=== PATIENT | female | born 1990 | race Hispanic/Latino ===

== ENCOUNTER 2024-08-24 11:49 | Emergency (ER) | payer SELFPAY ==
--- NOTE | 2024-08-24 12:17 | ED.GENMED ---
ED Provider Triage
<Andi Victor PA-C - Last Filed: 08/24/24 12:23>
-
Patient seen by provider in Triage?: Seen in Triage
Attestation: A medical screening examination has been initiated by a qualified medical provider. Based on the assessment performed at this time, it has been determined that an emergent medical condition may exist and the patient has been informed
that further medical evaluation and possible additional diagnostic testing may be needed.
HPI: 34-year-old female presents the emergency department for evaluation of right lower quadrant abdominal pain that began this morning. She was seen in [facility] 1 week ago for vaginal discharge where she was found to be with an
hCG of 31,000, and ultrasound was performed showing a live intrauterine . She went to urgent care today due to this pain and was referred to the ED, denies any vaginal discharge or bleeding at this time
GENERAL: Alert , in no apparent distress
EYE: No visual abnormalities.
NECK: Trachea midline
ENT: No visible abnormalities.
LUNGS: No acute respiratory distress
NEUROLOGICAL: Alert and oriented
SKIN: Skin intact. No visible changes.
MUSCULOSKELETAL: Moving extremities normally
PSYCH: Normal and appropriate interaction.
This is a medical evaluation conducted in person to initiate diagnostic evaluation and provide initial therapeutics. Please see further documentation by the treating clinician.
History of Present Illness
<Andi Victor PA-C - Last Filed: 08/24/24 12:23>
General
Chief Complaint: Problems
Time Seen by Provider: 08/24/24 12:58
<Linh Dove NP - Last Filed: 08/24/24 18:24>
General
Source: patient, spouse and other (Language sanding line operator [id number])
Exam Limitations: none
Nursing documentation reviewed up to this point in time: agreed with
History of Present Illness
History of Present Illness:
34-year-old female 4 para 3. Since for right lower quadrant abdominal pain that started last night. She states it 5/10 now, it comes and goes. She denies vaginal discharge or bleeding. Patient was seen at [facility] 08/17 for vaginal
infection and given amoxicillin which she continues to take. She has complete copy of her ER visit including lab work. Her CBC and CMP were unremarkable her hepatic functions were normal. Her urine showed no sign of infection. She had a
vaginitis panel which included trichomonas, bacterial vaginosis and candidal vaginosis. She had an ultrasound which showed a live intrauterine gestation at 6 weeks 2 days with an estimated delivery date of 04/10/2025. No ectopic
Patient denies N/V/C/D. Denies fever or chills.
Past History
<Linh Dove, DISABILITY ADVOCATE - Last Filed: 08/24/24 18:24>
Past History
ED Past Medical History: None
Social History
Tobacco: Non-smoker
Alcohol: None
Personal: Partner
Living: with family
Review of Systems
<Linh Dove, DISABILITY ADVOCATE - Last Filed: 08/24/24 18:24>
Review of Systems
Allergies reviewed?: Yes
All Other Systems: ROS reviewed and negative except as documented in HPI and ROS
Constitutional: Denies fever
Respiratory: Denies trouble breathing
Cardiac: Denies chest pain
ABD/GI: Reports abdominal pain; Denies nausea, vomiting or diarrhea
: Denies dysuria, frequency, difficulty voiding, bleeding or discharge
Musculoskeletal: Reports no symptoms
Skin: Reports no symptoms
Neurological: Reports no symptoms
Phy Exam
<Linh Dove, DISABILITY ADVOCATE - Last Filed: 08/24/24 18:24>
Physical Exam
Physical Exam:
GENERAL: No acute distress. A&Ox3.
CONSTITUTIONAL: Afebrile.
EYES: clear, conjunctivae normal
ENMT: moist mucus membranes
RESPIRATORY: Regular respirations, nonlabored, lungs clear.
CARDIOVASCULAR: Regular rate and rhythm, no murmurs, no rubs.
GI: Soft, mild right lower quadrant tenderness palpation, no rebound, normal BS
MUSCULOSKELETAL: Moves with ease. Well perfused.
SKIN: Warm, dry, pink
PSYCH: Normal mood and affect. Well kept, interactive and appropriate
NEUROLOGIC: Awake, alert and oriented. No focal neurological deficits
Course
<Andi Victor PA-C - Last Filed: 08/24/24 12:23>
Orders/Labs/Results
Orders:
Orders
08/24/24 12:29
Beta HCG Quantitative Urgent
Is this a screen?: No
Complete Blood Count/With Diff Urgent
Comprehensive Metabolic Panel Urgent
08/24/24 12:51
US Abdomen - Appendix Only Urgent
Comment:
Reason For Exam: RLQ pain early
US 1st Trimester Urgent
Comment:
Reason For Exam: RLQ pain states 7 wks preg
08/24/24 16:28
Urinalysis Reflex To Culture Urgent
Date Specimen was Collected: 08/24/24
Time Specimen was Collected: 13:44
Urine Microscopic Reflex Cult Urgent
Urine Culture Urgent
MUNIRA Source: U
Specimen Description:
Date Specimen was Collected: 08/24/24
Time Specimen was Collected: 13:44
Abnormal Lab Results
08/24/24 08/24/24
12:29 16:28
WBC 4.0 L 10^3/uL
(4.8-10.8)
Absolute Lymphs (auto) 1.0 L 10^3/uL
(1.2-3.4)
Monocytes % 9.6 H %
(1.7-9.3)
BUN 5 L mg/dl
(7-17)
Creatinine 0.5 L mg/dL
(0.6-1.0)
Calcium 8.1 L mg/dl
(8.4-10.2)
Urine Ketones 3+ A
(Negative)
Leukocyte Esterase Rfl 1+ A
(Negative)
Urine WBC (Reflex) 11-15 A /HPF
(0-5)
Urine Bacteria (Reflex) Moderate A
(Negative)
Urine Albumin (Reflex) 1+ A
(Neg - Trace)
08/24/24 12:29
08/24/24 12:29
Vital Signs
Initial and Last Documented VS:
Initial Vital Signs
Temp Pulse Resp BP Pulse Ox
99 F 90 16 121/77 100
08/24/24 12:18 08/24/24 12:18 08/24/24 12:18 08/24/24 12:18 08/24/24 12:18
Last Documented Vital Signs
Temp Pulse Resp BP Pulse Ox
99 F 86 16 107/70 99
08/24/24 12:18 08/24/24 15:44 08/24/24 15:44 08/24/24 15:44 08/24/24 15:44
<Linh Dove, DISABILITY ADVOCATE - Last Filed: 08/24/24 18:24>
Orders/Labs/Results
Orders:
Orders
08/24/24 12:29
Beta HCG Quantitative Urgent
Is this a screen?: No
Complete Blood Count/With Diff Urgent
Comprehensive Metabolic Panel Urgent
08/24/24 12:51
US Abdomen - Appendix Only Urgent
Comment:
Reason For Exam: RLQ pain early
US 1st Trimester Urgent
Comment:
Reason For Exam: RLQ pain states 7 wks preg
08/24/24 16:28
Urinalysis Reflex To Culture Urgent
Date Specimen was Collected: 08/24/24
Time Specimen was Collected: 13:44
Urine Microscopic Reflex Cult Urgent
Urine Culture Urgent
MUNIRA Source: U
Specimen Description:
Date Specimen was Collected: 08/24/24
Time Specimen was Collected: 13:44
Abnormal Lab Results
08/24/24 08/24/24
12:29 16:28
WBC 4.0 L 10^3/uL
(4.8-10.8)
Absolute Lymphs (auto) 1.0 L 10^3/uL
(1.2-3.4)
Monocytes % 9.6 H %
(1.7-9.3)
BUN 5 L mg/dl
(7-17)
Creatinine 0.5 L mg/dL
(0.6-1.0)
Calcium 8.1 L mg/dl
(8.4-10.2)
Urine Ketones 3+ A
(Negative)
Leukocyte Esterase Rfl 1+ A
(Negative)
Urine WBC (Reflex) 11-15 A /HPF
(0-5)
Urine Bacteria (Reflex) Moderate A
(Negative)
Urine Albumin (Reflex) 1+ A
(Neg - Trace)
08/24/24 12:29
08/24/24 12:29
Vital Signs
Initial and Last Documented VS:
Initial Vital Signs
Temp Pulse Resp BP Pulse Ox
99 F 90 16 121/77 100
08/24/24 12:18 08/24/24 12:18 08/24/24 12:18 08/24/24 12:18 08/24/24 12:18
Last Documented Vital Signs
Temp Pulse Resp BP Pulse Ox
99 F 86 16 107/70 99
08/24/24 12:18 08/24/24 15:44 08/24/24 15:44 08/24/24 15:44 08/24/24 15:44
Information
Weeks gestation: Weeks: (6 wks, 6 days)
Location: Location: (intrauterine)
<Linh Dove DISABILITY ADVOCATE - Last Filed: 08/24/24 18:24>
MDM/Problems Addressed
Differential Diagnosis Includes:
Appendicitis, early
MDM/Problems Addressed:
34-year-old female 4 para 3. Since for right lower quadrant abdominal pain that started last night. She states it 5/10 now, it comes and goes. She denies vaginal discharge or bleeding. Patient was seen at [facility] 08/17 for vaginal
infection and given amoxicillin which she continues to take. She has complete copy of her ER visit including lab work. Her CBC and CMP were unremarkable her hepatic functions were normal. Her urine showed no sign of infection. She had a
vaginitis panel which included trichomonas, bacterial vaginosis and candidal vaginosis.
Patient denies N/V/C/D. Denies fever or chills.
She had an ultrasound which showed a live intrauterine gestation at 6 weeks 2 days with an estimated delivery date of 04/10/2025. No ectopic . Ovaries were normal
CBC normal
CMP normal
4:30 PM:
Appendix ultrasound Radiology report read, appendix not visualized
Obstetric ultrasound radiology report reviewed: IMPRESSION:
Single live intrauterine with a sonographic mean gestational age of 6 weeks and 6 days.
Patient is stable for discharge.
She has paperwork from [facility] that she is in the process of filling out to attend there [facility]NA[facility] clinic.
<Linh Dove DISABILITY ADVOCATE - Last Filed: 08/24/24 18:24>
*Critical Care Note
Total Time (30-74mins, 75-104mins- exclusive of procedures): Not Applicable
ED Attending Note
<Andi Victor PA-C - Last Filed: 08/24/24 12:23>
-
Portions of this chart may have been created with voice recognition software.� Occasional wrong word or��sound alike� substitutions may have occurred due to the inherent limitations of voice recognition software.
Discharge Plan
Departure
Patient Disposition: Home (Routine Discharge)
Date of Disposition: 08/24/24
Time of Disposition: 16:28
Patient with high blood pressure during this ER visit?: No
Condition: Good
Discharge Problem:
Abdominal pain during
Instructions: Stomach Pain in Early
Referrals:
Your, [facility]ATION [facility]NA[facility] doctor at [facility] [Other] - Next open appointment
Activity Restrictions/Additional Instructions:
As we discussed, nothing worrisome in your exam here today. Be sure to fill out your paperwork for [facility] and get an appointment with the [facility]LO[facility] COMPENSATION MANAGER doctor there.
Interventions
Interventions:
*Risk Screen - Suicide Last Done: 08/24/24 12:18
*General Assessment Last Done: 08/24/24 13:38
*Neglect/Abuse Screening Last Done: 08/24/24 12:18
*ED COVID-19 Vaccine History Last Done: 08/24/24 13:38
*Nursing Disposition Last Done: 08/24/24 16:49
ED-Female Genitourinary Assessment Last Done: 08/24/24 13:38
Discharge Date and Time
Print Language: YAKUT
[2024-08-24 12:18] VITALS: BP 121/77
[2024-08-24 12:39] LABS: % Basophils 0.3 % (0-2); % Immature Granulocytes 0.3 % (0-0.5); % Lymphocytes 24.9 % (20.5-51.1); % Monocytes 9.6 % (1.7-9.3); % Neutrophils 64.9 % (42.2-75.2); Absolute Monocytes 0.4 10^3/uL (0.1-0.6); Absolute Neutrophils 2.6 10^3/uL (1.4-6.5); Hematocrit 39.4 % (37.0-47.0); Mean Corpuscular Hgb 28.8 pg (27.0-31.0); Mean Corpuscular Volume 87.4 fL (81.0-99.0); Mean Platelet Volume 10.1 fL (7.4-10.4); Nucleated Red Blood Cells % 0 %; Platelet Count 184 10^3/uL (130-400); Red Blood Cell Count 4.51 10^6/uL (4.20-5.40); Red Cell Dist. Width 12.6 % (11.5-14.5)
[2024-08-24 12:57] LABS: ALT (SGPT) 12 U/L (0-35); AST (SGOT) 25 U/L (14-36); Albumin 4.3 g/dl (3.5-5.0); Alkaline Phosphatase 71 U/L (38-126); Blood Urea Nitrogen 5 mg/dl (7-17); Calcium 8.1 mg/dl (8.4-10.2); Carbon Dioxide 23 mmol/L (22-30); Chloride 102 mmol/L (98-107); Glucose 89 mg/dl (70-99); Potassium 3.8 mmol/L (3.5-5.1); Sodium 136 mmol/L (135-145); Total Bilirubin 0.6 mg/dl (0.2-1.3); eGFR > 60.00
[2024-08-24 15:44] VITALS: BP 107/70
[2024-08-24 16:47] LABS: Urine Albumin 1+ (Neg - Trace); Urine Bilirubin Negative (Negative); Urine Character Clear (Clear); Urine Color Yellow; Urine Glucose Negative (Negative); Urine Ketone 3+ (Negative); Urine Leukocyte 1+ (Negative); Urine Nitrite Negative (Negative); Urine Occult Blood Negative (Negative); Urine Urobilinogen Negative (Neg - 1+)
[2024-08-24 17:13] LABS: Urine Bacteria Moderate (Negative); Urine Red Blood Cell 0-2 /HPF (0-2); Urine Squamous Cell >30 /LPF (Few)
== END 2024-08-24 16:49 | disposition home or self-care (01) ==
LOC: EMR 11:49
PROVIDERS: Physician Assistant; EMERGENCY PHYSICIAN Emergency Medicine
DX: O26.891 Other specified pregnancy related conditions, first trimester (principal); R10.31 Right lower quadrant pain; Z3A.01 Less than 8 weeks gestation of pregnancy
CPT/HCPCS: 99284; 76705; 76801; 80053; 81003; 81015; 84702; 85025; 87086